=== PATIENT | female | born 1985 | race Caucasian/White ===

== ENCOUNTER 2019-08-05 16:17 | Emergency (ER) | payer OTHER ==
[2019-08-05 16:51] VITALS: BP 113/66
--- NOTE | 2019-08-05 17:24 | UC ---
Respiratory Complaint HPI - HPI Summary HPI Summary: 34 y/o female presents to the urgent care c/o RASHEED, body aches , productive cough w/ green sputum and chest congestion for the past week. Pt reports symptoms started like a common cold and have worsen despite taken OTC medications. She hasn't been able to sleep well due to cough and now her ribs hurt from coughing. Pt experienced chills last night, but denies fever, SoB, wheezing, dizziness, chest pain, abdominal pain, N/V/D. LMP:01/2019 w/ B/L tubal ligation. Pt is an everyday smoker. - History of Current Complaint Chief Complaint: UCGeneralIllness Stated Complaint: SOB/RIB PAIN/COUGH Time Seen by Provider: 08/05/19 17:23 Hx Obtained From: Patient Onset/Duration: Gradual Onset, Lasting Weeks - 1 week, Still Present, Worse Since - 2 days Timing: Intermittent Episodes Severity Initially: Mild Severity Currently: Moderate Pain Intensity: 7 - rib pain s/p cough Pain Scale Used: 0-10 Numeric Character: Cough: Productive, Sputum Description: - yellowish Alleviating Factors: OTC Meds Associated Signs And Symptoms: Positive: Fever, Chills, Wheezing - mild, URI, Nasal Congestion, Sinus Discomfort - Risk Factors Pulmonary Embolism Risk Factors: Negative Cardiac Risk Factors: Negative Pseudomonas Risk Factors: Negative Tuberculosis Risk Factors: Negative - Allergies/Home Medications Allergies/Adverse Reactions: Allergies Allergy/AdvReac Type Severity Reaction Status Date / Time amoxicillin [From Augmentin] Allergy See Comment Verified 08/05/19 16:45 ciprofloxacin [From Cipro] Allergy See Comment Verified 08/05/19 16:45 clavulanic acid Allergy See Comment Verified 08/05/19 16:45 [From Augmentin] Home Medications: Home Medications BuPROPion XL* [Bupropion XL*] 150 mg PO DAILY 08/05/19 [History Confirmed ] Buprenorp/Nalox 8-2 MG SL TAB [Suboxone 8-2 mg SL TAB*] 1 tab.sl SL BID [History Confirmed 08/05/19] Levothyroxine TAB* [Synthroid 88 MCG TAB*] 88 mcg PO DAILY 08/05/19 [History Confirmed 08/05/19] PMH/Surg Hx/FS Hx/Imm Hx Previously Healthy: Yes Endocrine History: Hypothyroidism - Surgical History Surgical History: Yes Surgery Procedure, Year, and Place: tubal. x4. appy. kidney stone removal. choly - Family History Known Family History: Positive: Diabetes - Social History Occupation: Employed Full-time Lives: With Family Alcohol Use: None Substance Use Type: None Smoking Status (MU): Heavy Every Day Tobacco Smoker Type: Cigarettes Review of Systems All Other Systems Reviewed And Are Negative: Yes Constitutional: Positive: Fever, Chills, Other - body aches Skin: Positive: Negative Eyes: Positive: Negative ENT: Positive: Nasal Discharge - yellowish, Sinus Congestion Respiratory: Positive: Shortness Of Breath - mild, Cough - productive, Other - mild wheezing and rib pain when she coughs Cardiovascular: Positive: Negative Gastrointestinal: Positive: Negative Genitourinary: Positive: Negative Motor: Positive: Negative Neurovascular: Positive: Negative Musculoskeletal: Positive: Myalgia Neurological: Positive: Headache Psychological: Positive: Negative Is Patient Immunocompromised?: No Physical Exam - Summary Physical Exam Summary: Vital Signs Reviewed: Yes General: well developed, well nourished female sitting in the examining table w/ o any apparent distress Eyes: Positive: Conjunctiva Clear - PERRLA, EOMI, fundi grossly normal ENT: Positive: Normal ENT inspection, Hearing grossly normal, Pharynx normal, Nasal congestion - edematous and erythematous nasal mucosa, Nasal drainage - yellowish drainage, TMs normal. Negative: Tonsillar swelling, Tonsillar exudate Neck: Positive: Supple, Nontender, No Lymphadenopathy Respiratory: no orthopnea or dyspnea. Able to speak in full sentences, no retractions or accessory muscle use, no tripod position, stridor, or head bobbing. Positive breath sounds bilaterally. diffuse scattered rhonchi and crackles and mild wheezing in the posterior Rt lung, now wheezes or rales. Cardiovascular: Positive: RRR, No Murmur, Pulses Normal, Brisk Capillary Refill Abdomen Description: Positive: Nontender, No Organomegaly, Soft. Negative: CVA Tenderness (R), CVA Tenderness (L) Bowel Sounds: Positive: Present Musculoskeletal Exam: Normal Musculoskeletal: Positive: Strength Intact, ROM Intact, No Edema Neurological Exam: Normal Psychological Exam: Normal Skin Exam: Normal Triage Information Reviewed: Yes Vital Signs: Initial Vital Signs Temp 99.5 F 08/05/19 16:46 Pulse 77 08/05/19 16:46 Resp 16 08/05/19 16:46 BP 113/66 08/05/19 16:46 Pulse Ox 97 08/05/19 16:46 Respiratory Course/Dx - Course Course Of Treatment: 34 y/o female presents to the urgent care c/o RASHEED, body aches , productive cough w/ green sputum and chest congestion for the past week. Pt reports symptoms started like a common cold and have worsen despite taken OTC medications. She hasn't been able to sleep well due to cough and now her ribs hurt from coughing. Pt experienced chills last night, but denies fever, SoB, wheezing, dizziness, chest pain, abdominal pain, N/V/D. LMP:01/2019 w/ B/L tubal ligation. Pt is an everyday smoker. Hx obtained. Pt is hemodynamically stable, A&OX3, vitals: WNL. Pt w/ diffuse scattered rhonchi and crackles in the posterior Rt lung, now wheezes or rales. O2SAt:97%. Pt given albuterol Treatment to alleviate mild wheezing and cough. Pt tolerated well treatment and lungs improved,and wheezing resolved. Chest X-ray ordered to r/o pneumonia: Impression: RT middle lobe infiltrate most consistent w/ pneumonia as per DR Tejeda. However, final radiologist reportswill be done tomorrow. Pt w/ community acquired pneumonia.Patient prescribed Doxycycline PO, albuterol inhaler and Tessalon Tabs to alleviate symptoms as directed below. The patient was recommended to increase fluid intake. Take medications as recommended. Pt advised to return to the clinic or f/u w/ PCP 2-3 if symptoms do not improve. All D/C instructions explained. Patient understood and agree w / plan of care. Pt left clinic hemodynamically stable , A&OX3 - Differential Dx/Diagnosis Differential Diagnosis/HQI/PQRI: Asthma, Bronchitis, Exacerbation Of COPD, Influenza, Lower Resp Infection, Sinusitis, Other - pneumonia Provider Diagnosis: Community acquired pneumonia Discharge ED - Sign-Out/Discharge Documenting (check all that apply): Patient Departure All imaging exams completed and their final reports reviewed: No - Discharge Plan Condition: Stable Disposition: HOME Prescriptions: Albuterol HFA INHALER* [Ventolin HFA Inhaler*] 1 - 2 puff INH Q6H PRN #1 mdi PRN Reason: bronchospasm/wheezing Benzonatate CAP* [Tessalon 100 MG CAP*] 100 mg PO TID PRN #21 cap PRN Reason: Cough DOXYcycline CAP(*) [DOXYcycline 100MG CAP(*)] 100 mg PO BID #20 cap Patient Education Materials: Community Acquired Pneumonia (ED) Referrals: Shelbi Neves MD [Primary Care Provider] - Additional Instructions: 1-Please take full course of antibiotic to avoid resistance. 2-Take Tessalon PO tabs as directed and use the albuterol inhaler to alleviate cough. Increase fluid intake, rest and eat well. 3- If symptoms do not improve or worsen or your develop SOB with fever and severe wheezing please go immediately to the ER further evaluation and treatment. 4- F/u with your PCP in 2-3 days to make sure symptoms are improving - Billing Disposition and Condition Condition: STABLE Disposition: Home
[2019-08-05] MEDS ORDERED: Albuterol/Ipratropium NEB.SOL* Albuterol 2.5 MG/Ipratropium 0.5 MG 3 ML INH ONE (17:32)
--- NOTE | 2019-08-06 07:22 | UC ---
- Progress Note Progress Note: wet read correct Course/Dx - Diagnoses Provider Diagnoses: Community acquired pneumonia Discharge ED - Sign-Out/Discharge Documenting (check all that apply): Post-Discharge Follow Up All imaging exams completed and their final reports reviewed: Yes - Discharge Plan Condition: Stable Disposition: HOME Prescriptions: Albuterol HFA INHALER* [Ventolin HFA Inhaler*] 1 - 2 puff INH Q6H PRN #1 mdi PRN Reason: bronchospasm/wheezing Benzonatate CAP* [Tessalon 100 MG CAP*] 100 mg PO TID PRN #21 cap PRN Reason: Cough DOXYcycline CAP(*) [DOXYcycline 100MG CAP(*)] 100 mg PO BID #20 cap Patient Education Materials: Community Acquired Pneumonia (ED) Referrals: Shelbi Neves MD [Primary Care Provider] - Additional Instructions: 1-Please take full course of antibiotic to avoid resistance. 2-Take Tessalon PO tabs as directed and use the albuterol inhaler to alleviate cough. Increase fluid intake, rest and eat well. 3- If symptoms do not improve or worsen or your develop SOB with fever and severe wheezing please go immediately to the ER further evaluation and treatment. 4- F/u with your PCP in 2-3 days to make sure symptoms are improving - Billing Disposition and Condition Condition: STABLE Disposition: Home
== END 2019-08-05 18:50 | disposition home or self-care (01) ==
LOC: UCCORT 16:17
DX: J18.9 Pneumonia, unspecified organism (principal); R09.81 Nasal congestion; R09.89 Other specified symptoms and signs involving the circulatory and respiratory systems; E03.9 Hypothyroidism, unspecified; F17.210 Nicotine dependence, cigarettes, uncomplicated; Z88.0 Allergy status to penicillin; Z88.1 Allergy status to other antibiotic agents; Z79.890 Hormone replacement therapy
CPT/HCPCS: 71046; 99212; A9270-GY; G0463